=== PATIENT | male | born 1995 | race African-American/Black ===

== ENCOUNTER 2017-06-08 13:24 | Emergency (ER) | payer OTHER ==
[~2017-06-08] VITALS: Ht 172.7 cm; Wt 117.9 kg
[2017-06-08] MEDS ORDERED: BACTRIM DS TAB1 EACH PO (15:49)
== END 2017-06-08 16:23 | disposition home or self-care (01) ==
LOC: ER 13:24
DX: L03.032 Cellulitis of left toe (principal); G43.909 Migraine, unspecified, not intractable, without status migrainosus

== ENCOUNTER 2017-06-14 07:08 | Emergency (ER) | payer OTHER ==
[~2017-06-14] VITALS: Ht 182.9 cm; Wt 113.4 kg
[~2017-06-14 07:08] MED LIST: BACTRIM DS TAB1 EACH PO
[2017-06-14 08:20] LABS: ABSOLUTE NEUTROPHILS 6.8 thou/uL (1.4-8.2); BASOPHILS 0.4 % (0.0-2.0); HEMATOCRIT 45.4 % (42.0-52.0); HEMOGLOBIN 15.2 gm/dL (14.0-18.0); LYMPHOCYTES 21.1 % (24.0-44.0); MCH 26.7 pg (26.0-34.0); MCHC 33.4 g/dL (28.0-37.0); MCV 79.8 fL (80.0-100.0); MONOCYTES 6.6 % (1.0-8.0); PLATELET COUNT 234 thou/uL (150-400); POLYS 70.9 % (36.0-66.0); RBC 5.69 mil/uL (4.50-6.00); RDW 14.1 % (10.5-14.5); WBC 9.6 thou/uL (4.0-11.0)
[2017-06-14 08:29] LABS: CALCIUM 9.4 mg/dL (8.5-10.1); CREATININE 1.4 mg/dL (0.7-1.3); POTASSIUM 4.2 mmol/L (3.5-5.1)
[2017-06-14] MEDS ORDERED: BUTALB-APAP-CA1 EACH PO (09:11)
== END 2017-06-14 10:02 | disposition home or self-care (01) ==
LOC: ER 07:08
PROVIDERS: Emergency Medicine
DX: G43.909 Migraine, unspecified, not intractable, without status migrainosus (principal); Z90.49 Acquired absence of other specified parts of digestive tract